=== PATIENT | female | born 1945 | race Caucasian/White ===

== ENCOUNTER → 2017-06-29 | Outpatient (CLI) | payer OTHER | LOC: FCPNEURO 23:17 | PROVIDERS: ATTEND Psychiatry & Neurology Sleep Medicine | DX: G47.33 Obstructive sleep apnea (adult) (pediatric) (principal); G47.34 Idiopathic sleep related nonobstructive alveolar hypoventilation; G47.61 Periodic limb movement disorder ==

== ENCOUNTER → 2017-09-20 | Outpatient (CLI) | payer OTHER | LOC: FCPNEURO 23:22 | PROVIDERS: ATTEND Psychiatry & Neurology Sleep Medicine | DX: G47.33 Obstructive sleep apnea (adult) (pediatric) (principal); G47.61 Periodic limb movement disorder ==

== ENCOUNTER 2019-01-05 05:41 | Day surgery (SDC) | payer OTHER ==
--- NOTE | 2019-01-04 17:02 | SOAPPROG ---
SOAP Progress Note Assessment/Plan: HISTORY AND PHYSICAL Name THIERNO CORNELL (73yo, F) ID# [id number] 1945 [address] MAIN OFFICE Provider PER HOANG M.D. Insurance Med Primary: [employer] (HMO) Insurance # : [id number] Policy/Group # : [id number] Prescription: CMX - Member is eligible. details Prescription: CMX - Member is eligible. details Prescription: ESI1 - Member is eligible. details Chief Complaint Right shoulder MRI review. Complains of pain near her scapula that has become slightly worse than previous Patient's Care Team Primary Care Provider: SHAKIR RHODES: [address] [place] [address], , Orthopedic Surgeon: PER HOANG MD: [id number] [address] , , Patient's Pharmacies [facility] [id number] (ERX): [address] [facility] [id number], Ph , Vitals 12/09/2018 11:01 am Ht: 5 ft 5 in Allergies Reviewed Allergies NKDA Medications Reviewed Medications allopurinol 100 mg tablet TK 1 T PO D FOR PREVENTION OF ACUTE GOUT ATTACK 12/01/18 filled [facility] benzonatate 100 mg capsule 10/03/18 filled [facility] celecoxib 200 mg capsule 11/22/18 filled [facility] cephALEXin 500 mg capsule 11/09/18 filled [facility] colchicine 0.6 mg tablet TK 1 T PO D FOR ACUTE GOUTY ARTHRITIS 11/11/18 filled [facility] diclofenac 1 % topical gel 08/23/18 filled [facility] gabapentin 100 mg capsule 05/19/18 filled [facility] indomethacin 25 mg capsule TK 1 TO 2 CS PO TID FOR GOUT WITH MEALS 11/14/18 filled [facility] multivitamin 09/14/18 entered [facility] nabumetone 500 mg tablet 11/09/18 filled [facility] oseltamivir 75 mg capsule 10/03/18 filled [facility] oxyCODONE 5 mg tablet Take 1 tablet(s) every 4 hours by oral route as needed. 11/08/18 filled [facility] simvastatin 40 mg tablet Take 1 tablet(s) every day by oral route for 30 days. 11/22/18 filled [facility] spironolactone 50 mg tablet 09/19/18 filled [facility] Vitamin D3 09/14/18 entered [facility] None recorded. 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 Past Pregnancies None recorded. Past Medical History Reviewed Past Medical History Arthritis: Y Elevated Cholesterol: Y GERD/Reflux: Y Sleep Apnea: Y - possible Screening None recorded. HPI This is a very alejandro 73 year old female with: -2010 -- left shoulder RCR by a surgeon in [place] -08/03/18 -- fall onto her RUE with subsequent onset of diffuse right shoulder pain -- s/s c/w right shoulder GH arthritis flare and/or RCT -09/17/18 -- right shoulder MRI -- full thickness tear supraspinatus with 3.4 cm retraction, partial tear infraspinatus, SHERI with concomitant bursitis, partial tear subscapularis, partial tear LHB at the bicipital groove and anchor, mild GH OA, complex labral tearing, AC arthritis - 2017 -- bilateral midfoot swelling and pain requiring admission to [facility] for presumed diagnosis of gout - 2017 -- bilateral midfoot swelling and pain requiring admission to [facility] for presumed diagnosis of gout -12/03/18 -- Insidious onset of left mid-foot swelling and pain with a fever of 101 after stopping her celebrex in preparation for surgery - 12/07/18 -- right shoulder MRI -- full thickness tear of supraspinatus with 3 cm of retraction, moderate tendinopathy and partial tear of infraspinatus, moderate fatty atrophy of supraspinatus, AC joint arthritis, LHB tendonintis and partial tearing, degenerative labral tears, mild GH arthritis She presents today to review the results of her updated right shoulder MRI. ROS ROS as noted in the HPI Physical Exam Patient is a 73-year-old female. Bilateral shoulder examination Inspection/palpation: Right: TTP overlying the SA space, AC joint and anterior joint line Left: Normal resting posture Shoulder ROM (R / L / Normal) Forward flexion: 140 / 170 / 170 Abduction: 110 / 160 / 160 Shoulder strength (R / L / Normal) Deltoid: 5/ 5 / 5 Biceps: 5/ 5 / 5 Shoulder sensory (R / L / Normal) Axillary: + / + / + Shoulder tests Stability tests OBriens: + / - / - Apprehension: - / - / - Relocation: - / - / - Jerk: - / - / - Rotator cuff tests Empty can: + / - / - Belly press: - / - / - Lift off : - / - / - Impingement tests Sherrie: - / - / - Neer: + / - / - Cross-arm adduction: - / - / - Biceps test Speeds: + / - / - Yergason supination: - / - / - Assessment / Plan This is a very alejandro 73 year old female with: - 2010 -- left shoulder RCR by a surgeon in [place] - 08/03/18 -- fall onto her RUE with subsequent onset of diffuse right shoulder pain -- s/s c/w right shoulder GH arthritis flare and/or RCT - 09/17/18 -- right shoulder MRI -- full thickness tear supraspinatus with 3.4 cm retraction, partial tear infraspinatus, SHERI with concomitant bursitis, partial tear subscapularis, partial tear LHB at the bicipital groove and anchor , mild GH OA, complex labral tearing, AC arthritis - 2017 -- bilateral midfoot swelling and pain requiring admission to [facility] for presumed diagnosis of gout - 12/03/18 -- Insidious onset of left mid-foot swelling and pain with a fever of 101 after stopping her celebrex in preparation for surgery - 12/07/18 -- right shoulder MRI -- full thickness tear of supraspinatus with 3 cm of retraction, moderate tendinopathy and partial tear of infraspinatus, moderate fatty atrophy of supraspinatus, AC joint arthritis, LHB tendonintis and partial tearing, degenerative labral tears, mild GH arthritis For right shoulder: - I have discussed with the patient the risks, benefits, alternatives and complications associated with both non-operative (specifically, observation, PT , NSAIDs) and operative (specifically, right shoulder arthroscopy with SAD, DCE , labral debridement, LHB tenotomy and tenodesis, and rotator cuff repair) forms of treatment - The patient fully understands the risks, benefits, alternatives, and complications associated with these forms of treatment and wishes to proceed with operative intervention as outlined above - She has signed the informed consent form for surgery and surgery will be scheduled for the near future - In preparation for her upcoming surgical date, she will continue on Celebrex to prevent any exacerbation of her left midfoot symptoms 1. Full thickness rotator cuff tear M75.121: Complete rotator cuff tear or rupture of right shoulder, not specified as traumatic 2. Biceps tendinitis - Right M75.21: Bicipital tendinitis, right shoulder 3. Subacromial impingement M75.41: Impingement syndrome of right shoulder 4. Shoulder pain - Right M25.511: Pain in right shoulder MRI, SHOULDER, W/O CONTRAST Side: RIGHT 1. Large full thickness tear retracted 3.0 cm involving a majority of the supraspinatus tendon and severe attenuation of the remaining fibers. Moderate tendinopathy and mild partial tear of the infraspinatus tendon. Subacromial.subdeltoid bursitis. 2. Moderate to severe tendinopathy and partial tear distal subscapularis tendon. 3. Mild early degenerative change glenohumeral joint. Diminutive torn posterior superior labrum. Partial tear anterior inferior labrum. Mild gelnohumeral joint effusion. 4. Moderate tendinopathy biceps tendon within the bicipital groove and intra- articular. 5. Moderate to severe degnerative change acromioclavicular joint. Anterior curve and lateral downslope to the acromion. Return to Office None recorded. Encounter Sign-Off Encounter signed-off by Per Hoang M.D. 01/04/19 16:59 ICD10 Worksheet Patient Problems: Problems Problem Status Onset Unspecified rotator cuff tear or rupture of right shoulder, not specified as traumatic Acute - ICD10 Problem Qualifiers (1) Unspecified rotator cuff tear or rupture of right shoulder, not specified as traumatic
[2019-01-05] MEDS ORDERED: LR 1,000 ML IV ONE (06:35)
[2019-01-05] MEDS ORDERED: ceFAZolin 2 GM/DEXTROSE 100 ML IV ONE (06:44)
--- NOTE | 2019-01-05 06:45 | PDHPUP ---
History & Physical Update H&P update statement: This history and physical update is based on an assessment of the patient which was completed after admission or registration (within 24 hours), but prior to the surgery/procedure. H&P update: H&P reviewed & patient examined
[2019-01-05] MEDS ORDERED: BUPIVACAINE 0.5% 30 ML SDV ONE (06:46)
[2019-01-05] MEDS ORDERED: LIDO/EPI 1% **for epidural** 30 ML SDV ONE (06:46)
[2019-01-05] MEDS ORDERED: EPINEPHrine 1 MG/ML INJ ONE (06:46)
[2019-01-05] MEDS ORDERED: LIDOCAINE 1% 300 MG/30 ML SDV ONE (06:46)
[2019-01-05] MEDS ORDERED: MIDAZOLAM 2 MG/2 ML VIAL IVP ONE (06:58)
--- NOTE | 2019-01-05 06:58 | PDANEPAE ---
ANE History of Present Illness right shoulder arthroscopy ANE Past Medical History - Cardiovascular History Hx Hypertension: No Hx Arrhythmias: No Hx Chest Pain: No Hx Coronary Artery / Peripheral Vascular Disease: No Hx CHF / Valvular Disease: No Hx Palpitations: No Cardiovascular History Comment: hx pedal, ankle edema - Pulmonary History Hx COPD: No Hx Asthma/Reactive Airway Disease: No Hx Recent Upper Respiratory Infection: No Hx Oxygen in Use at Home: No Hx Sleep Apnea: Yes Sleep Apnea Screening Result - Last Documented: Positive Pulmonary History Comment: SIOBHAN positive - uses Cpap - Neurologic History Hx Cerebrovascular Accident: No Hx Seizures: No Hx Dementia: No Neurologic History Comment: chronic pain, weakness left leg r/t lumbar spinal stenosis - Endocrine History Hx Diabetes: No Obesity: yes, moderate - Renal History Hx Renal Disorders: No Renal History Comment: bladder leakage - Liver History Hx Hepatic Disorders: No - Neurological & Psychiatric Hx Hx Neurological and Psychiatric Disorders: No - Cancer History Hx Cancer: No - Congenital Disorder History Hx Congenital Disorders: No - GI History GERD: moderate Hx Gastrointestinal Disorders: Yes Gastrointestinal History Comment: GERD - Other Health History Other Health History: wears glasses. nasal congestion. bruises easily - Chronic Pain History Chronic Pain: Yes (low back) - Surgical History Prior Surgeries: bilat hip replacements. left hip revision. left rotator cuff repair. cholecystectomy. tonsillectomy. bilateral foot surgery as a small child ANE Review of Systems Review of systems is: negative Review of Systems: - Exercise capacity METS (RN): 4 METS ANE Patient History - Allergies Allergies/Adverse Reactions: No Known Allergies Allergy (Verified 01/05/19 06:08) - Home Medications Home medications: home medication list seen and reviewed Home Medications: Cholecalciferol (Vitamin D3) [Vitamin D3] 10/25/18 [Last Taken 12/29/18] Co Q-10 10/25/18 [Last Taken 12/29/18] Nexium 10/25/18 [Last Taken 01/04/19] Preservision Areds Tablet 10/25/18 [Last Taken 12/29/18] Simvastatin [Zocor] 10/25/18 [Last Taken 01/04/19] Spironolactone [Aldactone] 10/25/18 [Last Taken 01/04/19] Unisom Sleep Aid 10/25/18 [Last Taken 01/04/19] celeCOXIB [Celecoxib] 10/25/18 [Last Taken 01/03/19] Allopurinol 01/05/19 [Last Taken 01/04/19] - NPO status NPO Since - Liquids (Date): 01/04/19 NPO Since - Liquids (Time): 22:00 NPO Since - Solids (Date): 01/04/19 NPO Since - Solids (Time): 18:00 - Anes Hx Anes Hx: no prior problems - Smoking Hx Smoking Status: Never smoked Marijuana use: No - Family Anes Hx Family Hx Anesthesia Complications: none ANE Labs/Vital Signs - Vital Signs Blood Pressure: 150/85 Heart Rate: 79 Respiratory Rate: 16 O2 Sat (%): 91 Height: 165.1 cm Weight: 102.058 kg ANE Physical Exam - Airway Neck exam: FROM Mallampati Score: Class 2 Mouth exam: small mouth opening - Pulmonary Pulmonary: no respiratory distress - Cardiovascular Cardiovascular: regular rate and rhythym - ASA Status ASA Status: III ANE Anesthesia Plan Anesthesia Plan: GA w LMA Regional Anesthesia: single shot NB, interscalene BP NB Urgent/Emergent Case: Arik fofana completed preop but documented later for safe timely pt care
[2019-01-05] MEDS ORDERED: MIDAZOLAM 2 MG/2 ML VIAL ONE (07:00)
[2019-01-05] MEDS ORDERED: PROPOFOL 200 MG/20 ML VIAL ONE ×2 (07:02→09:35)
[2019-01-05] MEDS ORDERED: fentaNYL 100 MCG/2 ML INJ ONE (07:02)
[2019-01-05] MEDS ORDERED: LIDOCAINE 2% 5 ML SDV ONE (07:02)
[2019-01-05] MEDS ORDERED: ROPIVACAINE HCL 150 MG/30 ML INJ ONE (07:03)
[2019-01-05] MEDS ORDERED: DEXAMETHASONE 4 MG/ML VIAL ONE (07:43)
--- NOTE | 2019-01-05 07:48 | POSTANESTH ---
Post Anesthetic Evaluation Cardiovascular Status: Normal, Stable Respiratory Status: Normal, Stable Level of Consciousness/Mental Status: Can Participate in Eval, Alert and Oriented Pain Control: Adequate, Prn Tx Ordered Nausea/Vomiting Control: Adequate, Prn Tx Ordered Complications Possibly Related to Anesthesia: None Noted
[2019-01-05] MEDS ORDERED: fentaNYL 100 MCG/2 ML INJ IVP PRN (08:41)
[2019-01-05] MEDS ORDERED: NALOXONE HCL 0.4 MG/ML INJ IVP PRN ×2 (08:41)
[2019-01-05] MEDS ORDERED: LR 500 ML IV PRN (08:41)
[2019-01-05] MEDS ORDERED: ACETAMINOPHEN 500 MG TAB PO PRN (08:41)
[2019-01-05] MEDS ORDERED: ALBUTEROL 3 ML DEYVIAL IH PRN (08:41)
[2019-01-05] MEDS ORDERED: HYDROmorphONE/DILAUDID 2 MG/ML INJ IVP PRN (08:41)
[2019-01-05] MEDS ORDERED: PROMETHAZINE HCL 25 MG/ML INJ IVP PRN (08:41)
[2019-01-05] MEDS ORDERED: HYDROCODONE/APAP 5/325 TAB PO PRN (08:41)
[2019-01-05] MEDS ORDERED: oxyCODONE IR 5 MG TAB PO PRN (08:41)
[2019-01-05] MEDS ORDERED: ONDANSETRON 4 MG/2 ML VIAL IVP PRN (08:41)
[2019-01-05 12:12] VITALS: BP 131/76
--- NOTE | 2019-01-09 05:08 | GOP ---
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 PREOPERATIVE DIAGNOSIS: Right shoulder subacromial impingement. Right shoulder acromioclavicular joint arthritis. Right shoulder degenerative labral tears. Right shoulder long head biceps tendinitis. Right shoulder full-thickness rotator cuff tear. POSTOPERATIVE DIAGNOSIS: . PROCEDURE PERFORMED: Right shoulder arthroscopy with subacromial decompression, distal clavicle exci jose, labral debridement, long head of biceps tenodesis, and arthroscopic rotator cuff repair. FINDINGS: ESTIMATED BLOOD LOSS: 3 cc. DESCRIPTION OF PROCEDURE: This is a very pleasant 73-year-old female who underwent a right shoulder arthroscopy with subacromial decompression, distal clavicle excision, labral debridement, long head o f biceps tenodesis, and arthroscopic rotator cuff repair. COMPLICATIONS: None. IMPLANTS: Arthrex 5.5 mm Bio[employer]posite corkscrew anchor triple #2 FiberWire and 2 Arthrex 4.75 mm Bio[employer]posite SwiveLock anchors. /[id number]/MODL
== END 2019-01-05 12:00 | disposition home or self-care (01) ==
LOC: FSGY 05:41
PROVIDERS: ATTEND Orthopaedic Surgery Hand Surgery
DX: M75.121 Complete rotator cuff tear or rupture of right shoulder, not specified as traumatic (principal); M75.21 Bicipital tendinitis, right shoulder; M25.511 Pain in right shoulder; M75.41 Impingement syndrome of right shoulder; G47.33 Obstructive sleep apnea (adult) (pediatric); M48.061 Spinal stenosis, lumbar region without neurogenic claudication; Z96.643 Presence of artificial hip joint, bilateral
CPT/HCPCS: C1713; J0171; J0690; J1100; J2250; J2704; J2795; J3010